=== PATIENT | male | born 1965 | race African-American/Black ===

== ENCOUNTER 2022-08-25 12:53 | Inpatient (IN) | payer BC, MEDICARE ==
[2022-08-25] VITALS (9 sets, daily range): BP systolic 84–134; BP diastolic 44–79
[~2022-08-25] VITALS: Ht 165.1 cm; Wt 63.8 kg
[2022-08-25] MEDS ORDERED: SODIUM CHLORIDE 0.9% 1,000 ML IV ONE ×3 (13:15→15:45)
[2022-08-25 14:02] LABS: HEMATOCRIT. 33.8 % (42.0-52.0); HEMOGLOBIN. 10.8 g/dL (14.0-18.0); MEAN CORPUSCULAR VOLUME 87.2 fL (80.0-94.0); PLATELET 265 x1000/uL (130-400); RED BLOOD CELL COUNT 3.87 mill/uL (4.7-6.1); RED CELL DISTRIBUTION WIDTH 15.1 % (11.6-14.6)
[2022-08-25 14:15] LABS: CHLORIDE 85 mEq/L (98-107)
[2022-08-25 14:24] LABS: BETA HYDROXYBUTYRATE 0.2 mMol/L (0.0-0.3)
[2022-08-25] MEDS ORDERED: INSULIN REGULAR (HUMULIN R) 300UNITS/3ML VIAL IV ONE (15:45)
[2022-08-25] MEDS ORDERED: INSULIN REGULAR (DRIP) 100 UNITS in SODIUM CHLORIDE 0.9% 99 ML IV ONE ×2 (15:45→16:00)
[2022-08-25 16:15] LABS: PLATELET ESTIMATE NORMAL
[2022-08-25 17:34] LABS: CLARITY URINE CLEAR (CLEAR); COLOR URINE YELLOW (YELLOW); KETONES URINE NEGATIVE (NEGATIVE); LEUKOCYTE ESTERASE URINE NEGATIVE (NEGATIVE); NITRITE URINE NEGATIVE (NEGATIVE); OCCULT BLOOD URINE 2+ (NEGATIVE); PROTEIN URINE TRACE (NEGATIVE); SPECIFIC GRAVITY URINE 1.024 (1.005-1.030); UROBILINOGEN URINE 0.2 E.U./dL (0.2-1.0)
[2022-08-25] MEDS ORDERED: ONDANSETRON HCL 4MG/2ML INJ IV PRN (20:45)
[2022-08-25] MEDS ORDERED: PIPERACILLIN/TAZ 3.375G PREMIX 50 ML IV SCH (20:45)
[2022-08-25] MEDS ORDERED: ENOXAPARIN 40MG/0.4ML SYR SUBCUT SCH (21:00)
[2022-08-25] MEDS ORDERED: LEVETIRACETAM 500MG/5ML CUP PO SCH (21:00)
[2022-08-25] MEDS ORDERED: DEXTROSE 50% WATER 50ML SYRINGE IV PRN (21:15)
[2022-08-25] MEDS: PIPERACILLIN/TAZOBACTAM 3.375 G in DEXTROSE 5% WATER 50 ML IV SCH (21:21)
[2022-08-25] MEDS: SODIUM CHLORIDE 0.9% 1,000 ML IV SCH (21:21)
[2022-08-25] MEDS: FAMOTIDINE 20MG/2ML VIAL IV SCH (21:22)
[2022-08-25] MEDS: LEVETIRACETAM 500MG PREMIX 100 ML IV SCH (21:31)
[2022-08-25] MEDS ORDERED: NALOXONE HCL 0.4MG/ML VIAL IV PRN (22:00)
[2022-08-25] MEDS: INSULIN LISPRO 100 UNITS/ML SUBCUT SCH (22:00)
[2022-08-25] MEDS ORDERED: MORPHINE SULFATE 2 MG/ML CPJ (NOT FOR IM USE) IV PRN (22:00)
[2022-08-25] MEDS: BLOOD SUGAR DIAGNOSTIC STRIP TEST SCH (22:35)
[2022-08-25] MEDS ORDERED: SODIUM POLYSTYRENE SULFONATE 15 G/60 ML BOT PO NR (22:45)
[2022-08-26] VITALS (34 sets, daily range): BP systolic 85–165; BP diastolic 42–102
[2022-08-26] MEDS: BLOOD SUGAR DIAGNOSTIC STRIP TEST SCH ×9 (00:28→20:54)
[2022-08-26] MEDS: INSULIN LISPRO 100 UNITS/ML SUBCUT SCH ×7 (01:46→17:17)
[2022-08-26] MEDS: SODIUM CHLORIDE 0.9% 1,000 ML IV SCH ×3 (04:47→19:52)
[2022-08-26] MEDS: IPRATROPIUM/ALBUTEROL 0.5-3(2.5)MG/3ML NEB HHN SCH ×5 (04:50→20:13)
[2022-08-26 06:12] LABS: HEMATOCRIT. 29.7 % (42.0-52.0); HEMOGLOBIN. 9.9 g/dL (14.0-18.0); MEAN CORPUSCULAR HEMOGLOBIN 28.1 pg (28.0-32.0); MEAN PLATELET VOLUME 9.4 fl (7.4-10.4); PLATELET 275 x1000/uL (130-400); RED BLOOD CELL COUNT 3.53 mill/uL (4.7-6.1); RED CELL DISTRIBUTION WIDTH 14.8 % (11.6-14.6)
[2022-08-26 06:51] LABS: CHLORIDE 105 mEq/L (98-107)
[2022-08-26 07:15] LABS: HDL CHOLESTEROL 9 mg/dL (40-59); LDL CHOLESTEROL 20 mg/dL (5-100); PHOSPHORUS 2.5 mg/dL (2.5-4.9)
[2022-08-26 08:21] LABS: BG BASE EXCESS -8.3 mmol/L (-2.0-2.0); BG CARBOXYHEMOGLOBIN 0.2 % (0.5-1.5); BG DEOXYHEMOGLOBIN 5.8 % (0.0-5.0); BG HCO3 ACT 16.4 mmol/L (22.0-26.0); BG METHEMOGLOBIN 0.3 % (0.0-1.5); BG OXYGEN SATURATION 94.2 % (92.0-98.5); BG OXYHEMOGLOBIN 93.7 % (94.0-97.0); BG PCO2 31.4 mmHg (35.0-45.0); BG PH 7.337 (7.350-7.450); BG PO2 70.6 mmHg (75.0-100.0); BG SAMPLE SITE RIGHT BRACHIAL; BG VENT MODE ROOM AIR
[2022-08-26] MEDS: LEVETIRACETAM 500MG PREMIX 100 ML IV SCH ×2 (09:43→20:24)
[2022-08-26] MEDS: PIPERACILLIN/TAZOBACTAM 3.375 G in DEXTROSE 5% WATER 50 ML IV SCH ×2 (09:43→20:25)
[2022-08-26 09:46] LABS: PLATELET ESTIMATE NORMAL
[2022-08-26] MEDS: INSULIN GLARGINE 100 UNITS/ML SUBCUT SCH ×2 (12:51→21:06)
[2022-08-26] MEDS ORDERED: INSULIN LISPRO 100 UNITS/ML SUBCUT SCH (16:30)
[2022-08-26] MEDS: INSULIN LISPRO (LOW DOSE) 100 UNITS/ML SUBCUT SCH (17:13)
[2022-08-26] MEDS: ACETAMINOPHEN 325MG TABLET PO PRN (19:42)
[2022-08-26] MEDS ORDERED: SODIUM CHLORIDE 0.9% 1,000 ML IV ONE (19:45)
[2022-08-26] MEDS: FAMOTIDINE 20MG/2ML VIAL IV SCH (20:24)
[2022-08-26] MEDS ORDERED: THIAMINE HCL 100 MG in SODIUM CHLORIDE 0.9% 49 ML IV NR (20:30)
[2022-08-26] MEDS ORDERED: ENOXAPARIN 30MG/0.3ML SYR SUBCUT SCH (21:00)
[2022-08-27] VITALS (22 sets, daily range): BP systolic 118–179; BP diastolic 61–93
[2022-08-27] MEDS: IPRATROPIUM/ALBUTEROL 0.5-3(2.5)MG/3ML NEB HHN SCH ×6 (00:06→20:16)
[2022-08-27] MEDS: SODIUM CHLORIDE 0.9% 1,000 ML IV SCH ×3 (00:21→08:18)
[2022-08-27] MEDS: INSULIN LISPRO (LOW DOSE) 100 UNITS/ML SUBCUT SCH ×4 (05:23→16:48)
[2022-08-27] MEDS: BLOOD SUGAR DIAGNOSTIC STRIP TEST SCH ×4 (05:24→21:00)
[2022-08-27] MEDS: INSULIN LISPRO 100 UNITS/ML SUBCUT SCH ×3 (05:24→16:47)
[2022-08-27 06:13] LABS: CHLORIDE 114 mEq/L (98-107)
[2022-08-27 06:21] LABS: CREATINE KINASE 98 IU/L (39-308)
[2022-08-27] MEDS: LEVETIRACETAM 500MG PREMIX 100 ML IV SCH ×2 (08:52→23:52)
[2022-08-27] MEDS: PIPERACILLIN/TAZOBACTAM 3.375 G in DEXTROSE 5% WATER 50 ML IV SCH (08:52)
[2022-08-27 12:10] LABS: HEMATOCRIT. 29.5 % (42.0-52.0); HEMOGLOBIN. 9.7 g/dL (14.0-18.0); MEAN CORPUSCULAR HEMOGLOBIN 27.8 pg (28.0-32.0); MEAN CORPUSCULAR VOLUME 84.6 fL (80.0-94.0); MEAN PLATELET VOLUME 8.8 fl (7.4-10.4); PLATELET 307 x1000/uL (130-400); RED BLOOD CELL COUNT 3.49 mill/uL (4.7-6.1); RED CELL DISTRIBUTION WIDTH 15.5 % (11.6-14.6)
[2022-08-27] MEDS: METOPROLOL TARTRATE 25MG TABLET PO SCH ×2 (12:20→23:53)
[2022-08-27 16:10] LABS: PLATELET ESTIMATE NORMAL
[2022-08-27] MEDS ORDERED: THIAMINE HCL 100 MG in SODIUM CHLORIDE 0.9% 49 ML IV NR (16:30)
[2022-08-27] MEDS: FAMOTIDINE 20MG/2ML VIAL IV SCH (23:52)
[2022-08-27] MEDS: ENOXAPARIN 40MG/0.4ML SYR SUBCUT SCH (23:53)
[2022-08-27] MEDS: INSULIN GLARGINE 100 UNITS/ML SUBCUT SCH (23:55)
[2022-08-28] VITALS (7 sets, daily range): BP systolic 153–166; BP diastolic 74–97
[2022-08-28] MEDS: IPRATROPIUM/ALBUTEROL 0.5-3(2.5)MG/3ML NEB HHN SCH ×6 (00:16→21:28)
[2022-08-28 06:21] LABS: HEMATOCRIT. 29.5 % (42.0-52.0); HEMOGLOBIN. 9.9 g/dL (14.0-18.0); MEAN CORPUSCULAR HEMOGLOBIN 27.8 pg (28.0-32.0); MEAN CORPUSCULAR VOLUME 83.3 fL (80.0-94.0); MEAN PLATELET VOLUME 8.7 fl (7.4-10.4); PLATELET 321 x1000/uL (130-400); RED BLOOD CELL COUNT 3.55 mill/uL (4.7-6.1); RED CELL DISTRIBUTION WIDTH 15.2 % (11.6-14.6)
[2022-08-28 07:10] LABS: CHLORIDE 110 mEq/L (98-107)
[2022-08-28] MEDS: BLOOD SUGAR DIAGNOSTIC STRIP TEST SCH ×4 (07:30→21:03)
[2022-08-28] MEDS: INSULIN LISPRO (LOW DOSE) 100 UNITS/ML SUBCUT SCH ×3 (07:30→18:11)
[2022-08-28] MEDS: INSULIN LISPRO 100 UNITS/ML SUBCUT SCH ×3 (07:30→17:10)
[2022-08-28 07:31] LABS: PHOSPHORUS 1.5 mg/dL (2.5-4.9)
[2022-08-28] MEDS: METOPROLOL TARTRATE 25MG TABLET PO SCH ×2 (09:18→21:03)
[2022-08-28] MEDS: LEVETIRACETAM 500MG PREMIX 100 ML IV SCH (09:18)
[2022-08-28] MEDS: PIPERACILLIN/TAZOBACTAM 3.375 G in DEXTROSE 5% WATER 50 ML IV SCH ×4 (09:18→21:06)
[2022-08-28] MEDS ORDERED: MAGNESIUM 2 G PREMIX 50 ML IV SCH (12:00)
[2022-08-28] MEDS: POTASSIUM-SODIUM PHOSPHATE POWDER PACKET PO SCH ×2 (12:16→18:06)
[2022-08-28] MEDS ORDERED: POTASSIUM PHOS,M-BASIC-D-BASIC 30 MMOL in SODIUM CHLORIDE 0.9% 500 ML IV SCH (13:00)
[2022-08-28] MEDS: ENOXAPARIN 40MG/0.4ML SYR SUBCUT SCH (21:03)
[2022-08-28] MEDS: FAMOTIDINE 20MG TABLET PO SCH (21:03)
[2022-08-28] MEDS: LEVETIRACETAM 500MG/5ML CUP PO SCH (21:04)
[2022-08-28] MEDS: INSULIN GLARGINE 100 UNITS/ML SUBCUT SCH (21:26)
[2022-08-29 00:20] VITALS: BP 161/88
[2022-08-29] MEDS: IPRATROPIUM/ALBUTEROL 0.5-3(2.5)MG/3ML NEB HHN SCH ×6 (00:29→20:42)
[2022-08-29 04:15] VITALS: BP 154/92
[2022-08-29 05:48] LABS: BASOPHILS % 0.1 % (0.0-2.0); EOSINOPHILS % 0.1 % (0.0-5.0); HEMOGLOBIN. 9.5 g/dL (14.0-18.0); LYMPHOCYTES % 9.1 % (20.0-50.0); MEAN CORPUSCULAR VOLUME 82.3 fL (80.0-94.0); MEAN PLATELET VOLUME 8.7 fl (7.4-10.4); MONOCYTES % 4.6 % (2.0-8.0); NEUTROPHILS % 86.1 % (40.0-76.0); PLATELET 375 x1000/uL (130-400); RED BLOOD CELL COUNT 3.41 mill/uL (4.7-6.1); RED CELL DISTRIBUTION WIDTH 15.3 % (11.6-14.6)
[2022-08-29] MEDS: INSULIN LISPRO 100 UNITS/ML SUBCUT SCH ×4 (07:10→16:47)
[2022-08-29] MEDS: INSULIN LISPRO (LOW DOSE) 100 UNITS/ML SUBCUT SCH ×3 (07:10→16:46)
[2022-08-29] MEDS: BLOOD SUGAR DIAGNOSTIC STRIP TEST SCH ×4 (07:10→21:22)
[2022-08-29 08:00] VITALS: BP 159/85
[2022-08-29] MEDS: METOPROLOL TARTRATE 25MG TABLET PO SCH ×2 (08:45→21:21)
[2022-08-29] MEDS: LEVETIRACETAM 500MG/5ML CUP PO SCH ×2 (08:45→21:21)
[2022-08-29] MEDS: POTASSIUM-SODIUM PHOSPHATE POWDER PACKET PO SCH ×2 (08:45→16:51)
[2022-08-29] MEDS: PIPERACILLIN/TAZOBACTAM 3.375 G in DEXTROSE 5% WATER 50 ML IV SCH ×2 (08:50→21:21)
[2022-08-29 09:25] LABS: CHLORIDE 107 mEq/L (98-107)
[2022-08-29 09:39] LABS: PHOSPHORUS 2.1 mg/dL (2.5-4.9)
[2022-08-29] MEDS ORDERED: DEXT 5%/0.9% NACL 1,000 ML IV SCH (10:45)
[2022-08-29 11:34] LABS: PLATELET ESTIMATE NORMAL
[2022-08-29 12:00] VITALS: BP 145/84
[2022-08-29] MEDS: ACETAMINOPHEN 325MG TABLET PO PRN (15:02)
[2022-08-29 15:32] VITALS: BP 154/85
[2022-08-29 20:00] VITALS: BP 131/76
[2022-08-29] MEDS: ENOXAPARIN 40MG/0.4ML SYR SUBCUT SCH (21:22)
[2022-08-29] MEDS: FAMOTIDINE 20MG TABLET PO SCH (21:22)
[2022-08-29] MEDS: INSULIN GLARGINE 100 UNITS/ML SUBCUT SCH (21:23)
[2022-08-30] VITALS: BP 126/80
[2022-08-30] MEDS: IPRATROPIUM/ALBUTEROL 0.5-3(2.5)MG/3ML NEB HHN SCH ×6 (00:39→20:19)
[2022-08-30 04:00] VITALS: BP 149/82
[2022-08-30] MEDS: BLOOD SUGAR DIAGNOSTIC STRIP TEST SCH ×4 (06:44→21:00)
[2022-08-30] MEDS: INSULIN LISPRO (LOW DOSE) 100 UNITS/ML SUBCUT SCH ×3 (06:45→18:40)
[2022-08-30] MEDS: INSULIN LISPRO 100 UNITS/ML SUBCUT SCH ×3 (06:49→18:41)
[2022-08-30 08:30] VITALS: BP 151/83
[2022-08-30] MEDS: LEVETIRACETAM 500MG/5ML CUP PO SCH ×2 (08:34→21:41)
[2022-08-30] MEDS: METOPROLOL TARTRATE 25MG TABLET PO SCH (08:34)
[2022-08-30] MEDS: POTASSIUM-SODIUM PHOSPHATE POWDER PACKET PO SCH ×2 (08:34→16:22)
[2022-08-30] MEDS: PIPERACILLIN/TAZOBACTAM 3.375 G in DEXTROSE 5% WATER 50 ML IV SCH ×2 (08:35→21:40)
[2022-08-30] MEDS ORDERED: INFLUENZA VACCINE 05/PF 0.5 ML SYRINGE IM ONE (10:00)
[2022-08-30 12:10] VITALS: BP 128/69
[2022-08-30 16:12] VITALS: BP 138/70
[2022-08-30] MEDS: ACETAMINOPHEN 325MG TABLET PO PRN (16:22)
[2022-08-30 16:54] LABS: HEMATOCRIT 28.7 % (42.0-52.0); HEMOGLOBIN 9.7 g/dL (14.0-18.0)
[2022-08-30 16:55] LABS: INR 1.1; PROTHROMBIN TIME 11.4 sec (9.6-11.0)
[2022-08-30 18:09] LABS: FERRITIN 299 ng/mL (22-322)
[2022-08-30 18:21] LABS: TOTAL IRON BINDING CAPACITY 124 ug/dL (250-450)
[2022-08-30 20:00] VITALS: BP 121/65
[2022-08-30] MEDS ORDERED: METOPROLOL TARTRATE 25MG TABLET PO SCH (21:00)
[2022-08-30] MEDS: FAMOTIDINE 20MG TABLET PO SCH (21:41)
[2022-08-30] MEDS: ENOXAPARIN 40MG/0.4ML SYR SUBCUT SCH (21:44)
[2022-08-30 21:49] LABS: HEPATITIS B SURFACE ANTIGEN NEGATIVE
[2022-08-30] MEDS: INSULIN GLARGINE 100 UNITS/ML SUBCUT SCH (22:13)
[2022-08-31] VITALS: BP 126/70
[2022-08-31] MEDS: IPRATROPIUM/ALBUTEROL 0.5-3(2.5)MG/3ML NEB HHN SCH ×5 (00:01→17:10)
[2022-08-31 04:00] VITALS: BP 140/76
[2022-08-31 06:52] LABS: BASOPHILS % 0.2 % (0.0-2.0); EOSINOPHILS % 0.5 % (0.0-5.0); HEMATOCRIT. 29.6 % (42.0-52.0); HEMOGLOBIN. 9.8 g/dL (14.0-18.0); LYMPHOCYTES % 11.9 % (20.0-50.0); MEAN CORPUSCULAR VOLUME 84.7 fL (80.0-94.0); MEAN PLATELET VOLUME 8.9 fl (7.4-10.4); MONOCYTES % 5.2 % (2.0-8.0); NEUTROPHILS % 82.2 % (40.0-76.0); PLATELET 437 x1000/uL (130-400); RED CELL DISTRIBUTION WIDTH 15.2 % (11.6-14.6)
[2022-08-31] MEDS: INSULIN LISPRO (LOW DOSE) 100 UNITS/ML SUBCUT SCH ×4 (07:06→18:28)
[2022-08-31] MEDS: INSULIN LISPRO 100 UNITS/ML SUBCUT SCH ×2 (07:06→18:25)
[2022-08-31] MEDS: BLOOD SUGAR DIAGNOSTIC STRIP TEST SCH ×4 (07:07→20:38)
[2022-08-31 08:02] VITALS: BP 127/76
[2022-08-31] MEDS: LEVETIRACETAM 500MG/5ML CUP PO SCH ×2 (10:06→21:13)
[2022-08-31] MEDS: METOPROLOL TARTRATE 50MG TABLET PO SCH ×2 (10:07→21:14)
[2022-08-31] MEDS: POTASSIUM-SODIUM PHOSPHATE POWDER PACKET PO SCH ×2 (10:07→18:17)
[2022-08-31 12:00] VITALS: BP 123/74
[2022-08-31 16:00] VITALS: BP 131/79
[2022-08-31] MEDS: ACETAMINOPHEN 325MG TABLET PO PRN (18:17)
[2022-08-31 19:30] LABS: VITAMIN B12 SERUM 883 pg/mL (211-911)
[2022-08-31 20:00] VITALS: BP 115/67
[2022-08-31] MEDS: INSULIN GLARGINE 100 UNITS/ML SUBCUT SCH (21:13)
[2022-08-31] MEDS: ENOXAPARIN 40MG/0.4ML SYR SUBCUT SCH (21:14)
[2022-08-31] MEDS: FAMOTIDINE 20MG TABLET PO SCH (21:14)
[2022-09-01] VITALS: BP 118/70
[2022-09-01] MEDS: IPRATROPIUM/ALBUTEROL 0.5-3(2.5)MG/3ML NEB HHN SCH ×6 (00:23→21:07)
[2022-09-01 01:48] LABS: CREATINE KINASE 74 IU/L (39-308)
[2022-09-01 04:00] VITALS: BP 130/75
[2022-09-01] MEDS: INSULIN LISPRO (LOW DOSE) 100 UNITS/ML SUBCUT SCH ×3 (06:57→16:23)
[2022-09-01] MEDS: BLOOD SUGAR DIAGNOSTIC STRIP TEST SCH ×4 (06:57→20:53)
[2022-09-01 07:05] LABS: BASOPHILS % 0.5 % (0.0-2.0); EOSINOPHILS % 0.6 % (0.0-5.0); HEMATOCRIT. 29.1 % (42.0-52.0); HEMOGLOBIN. 9.7 g/dL (14.0-18.0); LYMPHOCYTES % 9.5 % (20.0-50.0); MEAN CORPUSCULAR HEMOGLOBIN 27.8 pg (28.0-32.0); MEAN CORPUSCULAR VOLUME 83.4 fL (80.0-94.0); MEAN PLATELET VOLUME 8.8 fl (7.4-10.4); MONOCYTES % 5.8 % (2.0-8.0); NEUTROPHILS % 83.6 % (40.0-76.0); PLATELET 496 x1000/uL (130-400); RED BLOOD CELL COUNT 3.49 mill/uL (4.7-6.1); RED CELL DISTRIBUTION WIDTH 15.1 % (11.6-14.6)
[2022-09-01 08:00] VITALS: BP 125/70
[2022-09-01] MEDS: POTASSIUM-SODIUM PHOSPHATE POWDER PACKET PO SCH ×2 (10:00→16:34)
[2022-09-01] MEDS: INSULIN LISPRO 100 UNITS/ML SUBCUT SCH ×3 (10:01→16:35)
[2022-09-01] MEDS: METOPROLOL TARTRATE 50MG TABLET PO SCH ×2 (10:01→21:09)
[2022-09-01] MEDS: LEVETIRACETAM 500MG/5ML CUP PO SCH ×2 (10:03→21:08)
[2022-09-01 12:00] VITALS: BP 107/67
[2022-09-01] MEDS: PIPERACILLIN/TAZOBACTAM 3.375 G in DEXTROSE 5% WATER 50 ML IV SCH ×2 (15:46→21:09)
[2022-09-01 16:00] VITALS: BP 123/65
[2022-09-01 20:00] VITALS: BP 117/65
[2022-09-01 20:01] LABS: CHLORIDE 102 mEq/L (98-107)
[2022-09-01 20:13] LABS: PHOSPHORUS 2.7 mg/dL (2.5-4.9)
[2022-09-01 20:35] LABS: CHLORIDE 105 mEq/L (98-107)
[2022-09-01] MEDS: ENOXAPARIN 40MG/0.4ML SYR SUBCUT SCH (21:08)
[2022-09-01] MEDS: FAMOTIDINE 20MG TABLET PO SCH (21:09)
[2022-09-01] MEDS: INSULIN GLARGINE 100 UNITS/ML SUBCUT SCH (21:10)
[2022-09-02] VITALS: BP 122/80
[2022-09-02] MEDS: IPRATROPIUM/ALBUTEROL 0.5-3(2.5)MG/3ML NEB HHN SCH ×5 (01:08→16:00)
[2022-09-02 04:00] VITALS: BP 121/68
[2022-09-02] MEDS: PIPERACILLIN/TAZOBACTAM 3.375 G in DEXTROSE 5% WATER 50 ML IV SCH ×3 (05:50→22:53)
[2022-09-02] MEDS: INSULIN LISPRO (LOW DOSE) 100 UNITS/ML SUBCUT SCH ×3 (05:51→17:07)
[2022-09-02] MEDS: BLOOD SUGAR DIAGNOSTIC STRIP TEST SCH ×4 (05:52→21:00)
[2022-09-02] MEDS: INSULIN LISPRO 100 UNITS/ML SUBCUT SCH ×3 (05:52→17:09)
[2022-09-02 07:37] LABS: BASOPHILS % 0.7 % (0.0-2.0); EOSINOPHILS % 0.8 % (0.0-5.0); HEMATOCRIT. 28.4 % (42.0-52.0); HEMOGLOBIN. 9.5 g/dL (14.0-18.0); LYMPHOCYTES % 12.2 % (20.0-50.0); MEAN CORPUSCULAR VOLUME 83.6 fL (80.0-94.0); MEAN PLATELET VOLUME 8.9 fl (7.4-10.4); MONOCYTES % 6.9 % (2.0-8.0); NEUTROPHILS % 79.4 % (40.0-76.0); PLATELET 550 x1000/uL (130-400); RED BLOOD CELL COUNT 3.39 mill/uL (4.7-6.1); RED CELL DISTRIBUTION WIDTH 15.2 % (11.6-14.6)
[2022-09-02] MEDS: POTASSIUM-SODIUM PHOSPHATE POWDER PACKET PO SCH ×2 (08:46→17:00)
[2022-09-02] MEDS: LEVETIRACETAM 500MG/5ML CUP PO SCH ×2 (08:46→21:08)
[2022-09-02] MEDS: METOPROLOL TARTRATE 50MG TABLET PO SCH ×2 (08:47→21:08)
[2022-09-02 10:44] LABS: CHLORIDE 100 mEq/L (98-107)
[2022-09-02 11:00] LABS: PHOSPHORUS 2.9 mg/dL (2.5-4.9)
[2022-09-02 12:00] VITALS: BP 118/69
[2022-09-02 16:00] VITALS: BP 112/64
[2022-09-02 20:00] VITALS: BP 119/71
[2022-09-02] MEDS: FAMOTIDINE 20MG TABLET PO SCH (21:08)
[2022-09-02] MEDS: ENOXAPARIN 40MG/0.4ML SYR SUBCUT SCH (21:09)
[2022-09-02] MEDS: INSULIN GLARGINE 100 UNITS/ML SUBCUT SCH (22:55)
[2022-09-03] VITALS: BP 118/60
[2022-09-03] MEDS: IPRATROPIUM/ALBUTEROL 0.5-3(2.5)MG/3ML NEB HHN SCH ×7 (00:22→20:08)
[2022-09-03 04:00] VITALS: BP 115/70
[2022-09-03] MEDS: PIPERACILLIN/TAZOBACTAM 3.375 G in DEXTROSE 5% WATER 50 ML IV SCH ×3 (05:10→22:13)
[2022-09-03] MEDS: BLOOD SUGAR DIAGNOSTIC STRIP TEST SCH ×4 (06:19→21:00)
[2022-09-03] MEDS: INSULIN LISPRO (LOW DOSE) 100 UNITS/ML SUBCUT SCH ×3 (06:19→19:04)
[2022-09-03] MEDS: INSULIN LISPRO 100 UNITS/ML SUBCUT SCH ×3 (06:19→19:03)
[2022-09-03 06:34] LABS: BASOPHILS % 0.6 % (0.0-2.0); EOSINOPHILS % 0.8 % (0.0-5.0); HEMATOCRIT. 27.5 % (42.0-52.0); HEMOGLOBIN. 9.2 g/dL (14.0-18.0); MEAN CORPUSCULAR HEMOGLOBIN 27.8 pg (28.0-32.0); MEAN CORPUSCULAR VOLUME 83.2 fL (80.0-94.0); MEAN PLATELET VOLUME 8.5 fl (7.4-10.4); MONOCYTES % 8.7 % (2.0-8.0); NEUTROPHILS % 75.9 % (40.0-76.0); PLATELET 576 x1000/uL (130-400); RED BLOOD CELL COUNT 3.31 mill/uL (4.7-6.1)
[2022-09-03 06:47] LABS: CHLORIDE 100 mEq/L (98-107)
[2022-09-03 08:00] VITALS: BP 118/78
[2022-09-03] MEDS: POTASSIUM-SODIUM PHOSPHATE POWDER PACKET PO SCH ×2 (09:42→18:59)
[2022-09-03] MEDS: LEVETIRACETAM 500MG/5ML CUP PO SCH ×2 (09:43→22:11)
[2022-09-03] MEDS: METOPROLOL TARTRATE 50MG TABLET PO SCH ×2 (09:43→22:12)
[2022-09-03 12:00] VITALS: BP 106/62
[2022-09-03 16:00] VITALS: BP 122/67
[2022-09-03 20:00] VITALS: BP 119/64
[2022-09-03] MEDS: FAMOTIDINE 20MG TABLET PO SCH (22:11)
[2022-09-03] MEDS: ENOXAPARIN 40MG/0.4ML SYR SUBCUT SCH (22:11)
[2022-09-03] MEDS: INSULIN GLARGINE 100 UNITS/ML SUBCUT SCH (22:17)
[2022-09-04] VITALS (7 sets, daily range): BP systolic 104–139; BP diastolic 44–68
[2022-09-04] MEDS: IPRATROPIUM/ALBUTEROL 0.5-3(2.5)MG/3ML NEB HHN SCH ×6 (00:21→20:20)
[2022-09-04] MEDS: PIPERACILLIN/TAZOBACTAM 3.375 G in DEXTROSE 5% WATER 50 ML IV SCH ×3 (05:50→21:16)
[2022-09-04] MEDS: INSULIN LISPRO (LOW DOSE) 100 UNITS/ML SUBCUT SCH ×3 (06:26→17:10)
[2022-09-04] MEDS: INSULIN LISPRO 100 UNITS/ML SUBCUT SCH ×3 (06:27→17:10)
[2022-09-04] MEDS: BLOOD SUGAR DIAGNOSTIC STRIP TEST SCH ×4 (06:27→20:27)
[2022-09-04 08:27] LABS: BASOPHILS % 0.7 % (0.0-2.0); EOSINOPHILS % 0.8 % (0.0-5.0); HEMOGLOBIN. 9.3 g/dL (14.0-18.0); LYMPHOCYTES % 16.6 % (20.0-50.0); MEAN CORPUSCULAR HEMOGLOBIN 27.7 pg (28.0-32.0); MEAN CORPUSCULAR VOLUME 83.5 fL (80.0-94.0); MEAN PLATELET VOLUME 8.6 fl (7.4-10.4); MONOCYTES % 8.3 % (2.0-8.0); NEUTROPHILS % 73.6 % (40.0-76.0); PLATELET 665 x1000/uL (130-400); RED BLOOD CELL COUNT 3.35 mill/uL (4.7-6.1); RED CELL DISTRIBUTION WIDTH 14.9 % (11.6-14.6)
[2022-09-04 09:35] LABS: CHLORIDE 100 mEq/L (98-107)
[2022-09-04 09:50] LABS: PHOSPHORUS 3.1 mg/dL (2.5-4.9)
[2022-09-04] MEDS: LEVETIRACETAM 500MG/5ML CUP PO SCH ×2 (10:55→21:14)
[2022-09-04] MEDS: METOPROLOL TARTRATE 50MG TABLET PO SCH ×2 (10:55→21:14)
[2022-09-04] MEDS: POTASSIUM-SODIUM PHOSPHATE POWDER PACKET PO SCH ×2 (10:55→19:01)
[2022-09-04] MEDS: ENOXAPARIN 40MG/0.4ML SYR SUBCUT SCH (21:15)
[2022-09-04] MEDS: FAMOTIDINE 20MG TABLET PO SCH (21:15)
[2022-09-04] MEDS: INSULIN GLARGINE 100 UNITS/ML SUBCUT SCH (21:28)
[2022-09-05] VITALS: BP 108/60
[2022-09-05] MEDS: IPRATROPIUM/ALBUTEROL 0.5-3(2.5)MG/3ML NEB HHN SCH ×7 (00:40→23:53)
[2022-09-05 04:00] VITALS: BP 113/74
[2022-09-05] MEDS: PIPERACILLIN/TAZOBACTAM 3.375 G in DEXTROSE 5% WATER 50 ML IV SCH ×3 (05:37→21:56)
[2022-09-05] MEDS: BLOOD SUGAR DIAGNOSTIC STRIP TEST SCH ×4 (06:14→20:54)
[2022-09-05] MEDS: INSULIN LISPRO (LOW DOSE) 100 UNITS/ML SUBCUT SCH ×3 (06:14→18:02)
[2022-09-05] MEDS: INSULIN LISPRO 100 UNITS/ML SUBCUT SCH ×3 (06:14→18:02)
[2022-09-05 06:58] LABS: BASOPHILS % 0.9 % (0.0-2.0); EOSINOPHILS % 0.7 % (0.0-5.0); HEMATOCRIT. 29.5 % (42.0-52.0); HEMOGLOBIN. 10.1 g/dL (14.0-18.0); LYMPHOCYTES % 12.6 % (20.0-50.0); MEAN CORPUSCULAR HEMOGLOBIN 28.9 pg (28.0-32.0); MEAN CORPUSCULAR VOLUME 84.6 fL (80.0-94.0); MEAN PLATELET VOLUME 8.7 fl (7.4-10.4); MONOCYTES % 7.3 % (2.0-8.0); NEUTROPHILS % 78.5 % (40.0-76.0); PLATELET 710 x1000/uL (130-400); RED BLOOD CELL COUNT 3.48 mill/uL (4.7-6.1); RED CELL DISTRIBUTION WIDTH 14.8 % (11.6-14.6)
[2022-09-05 08:00] VITALS: BP 120/73
[2022-09-05 08:56] LABS: CHLORIDE 101 mEq/L (98-107)
[2022-09-05] MEDS: POTASSIUM-SODIUM PHOSPHATE POWDER PACKET PO SCH ×2 (09:02→17:49)
[2022-09-05] MEDS: LEVETIRACETAM 500MG/5ML CUP PO SCH ×2 (09:02→20:54)
[2022-09-05] MEDS: METOPROLOL TARTRATE 50MG TABLET PO SCH ×2 (09:03→20:54)
[2022-09-05 16:00] VITALS: BP 139/83
[2022-09-05 20:00] VITALS: BP 138/88
[2022-09-05] MEDS: FAMOTIDINE 20MG TABLET PO SCH (20:54)
[2022-09-05] MEDS: ENOXAPARIN 40MG/0.4ML SYR SUBCUT SCH (20:54)
[2022-09-05] MEDS ORDERED: INSULIN GLARGINE 100 UNITS/ML SUBCUT SCH (22:00)
[2022-09-06] VITALS (7 sets, daily range): BP systolic 104–165; BP diastolic 60–92
[2022-09-06] MEDS: IPRATROPIUM/ALBUTEROL 0.5-3(2.5)MG/3ML NEB HHN SCH ×6 (04:04→23:57)
[2022-09-06] MEDS: PIPERACILLIN/TAZOBACTAM 3.375 G in DEXTROSE 5% WATER 50 ML IV SCH ×2 (05:40→16:14)
[2022-09-06] MEDS: INSULIN LISPRO 100 UNITS/ML SUBCUT SCH ×3 (06:20→17:10)
[2022-09-06] MEDS: INSULIN LISPRO (LOW DOSE) 100 UNITS/ML SUBCUT SCH ×3 (06:20→17:40)
[2022-09-06] MEDS: BLOOD SUGAR DIAGNOSTIC STRIP TEST SCH ×4 (06:21→20:50)
[2022-09-06 07:34] LABS: HEMATOCRIT. 29.7 % (42.0-52.0); HEMOGLOBIN. 9.7 g/dL (14.0-18.0); MEAN CORPUSCULAR HEMOGLOBIN 27.8 pg (28.0-32.0); MEAN CORPUSCULAR VOLUME 84.6 fL (80.0-94.0); MEAN PLATELET VOLUME 8.4 fl (7.4-10.4); PLATELET 735 x1000/uL (130-400); RED BLOOD CELL COUNT 3.51 mill/uL (4.7-6.1); RED CELL DISTRIBUTION WIDTH 15.1 % (11.6-14.6)
[2022-09-06] MEDS ORDERED: METO-539 PO (08:44)
[2022-09-06] MEDS ORDERED: KEPPSOL PO (08:44)
[2022-09-06] MEDS ORDERED: INSLIS SUBCUT (08:44)
[2022-09-06] MEDS ORDERED: LANTUSUD SUBCUT (08:44)
[2022-09-06] MEDS: POTASSIUM-SODIUM PHOSPHATE POWDER PACKET PO SCH ×2 (08:49→17:12)
[2022-09-06] MEDS: LEVETIRACETAM 500MG/5ML CUP PO SCH ×2 (08:49→20:43)
[2022-09-06] MEDS: METOPROLOL TARTRATE 50MG TABLET PO SCH ×2 (08:57→20:44)
[2022-09-06 18:48] LABS: PLATELET ESTIMATE INCREASED
[2022-09-06] MEDS: FAMOTIDINE 20MG TABLET PO SCH (20:44)
[2022-09-06] MEDS ORDERED: ENOXAPARIN 30MG/0.3ML SYR SUBCUT SCH (21:00)
[2022-09-06] MEDS ORDERED: INSULIN GLARGINE 100 UNITS/ML SUBCUT SCH (22:00)
[2022-09-07] VITALS: BP 106/64
[2022-09-07] MEDS: IPRATROPIUM/ALBUTEROL 0.5-3(2.5)MG/3ML NEB HHN SCH ×2 (03:42→12:20)
[2022-09-07 04:00] VITALS: BP 104/66
[2022-09-07] MEDS: BLOOD SUGAR DIAGNOSTIC STRIP TEST SCH (06:27)
[2022-09-07] MEDS: INSULIN LISPRO 100 UNITS/ML SUBCUT SCH (06:27)
[2022-09-07] MEDS: INSULIN LISPRO (LOW DOSE) 100 UNITS/ML SUBCUT SCH (06:27)
[2022-09-07 08:00] VITALS: BP 120/67
[2022-09-07] MEDS: POTASSIUM-SODIUM PHOSPHATE POWDER PACKET PO SCH (09:42)
[2022-09-07] MEDS: LEVETIRACETAM 500MG/5ML CUP PO SCH (09:42)
[2022-09-07] MEDS: METOPROLOL TARTRATE 50MG TABLET PO SCH (09:42)
== END 2022-09-07 16:05 | disposition home health service (06) | DRG 871 ==
LOC: ER 13:43 → ENRESERV 17:41 → MICUNO 19:23 → 5EST 08-27 18:00 → 8WST 08-28 11:00
PROVIDERS: ADMIT Internal Medicine Pulmonary Disease; ATTEND Internal Medicine Pulmonary Disease
PROC: 4A00X4Z Measurement of Central Nervous Electrical Activity, External Approach (ICD-10-PCS; principal; 2022-08-26)
DX: A41.9 Sepsis, unspecified organism (principal); E11.00 Type 2 diabetes mellitus with hyperosmolarity without nonketotic hyperglycemic-hyperosmolar coma (NKHHC); E43 Unspecified severe protein-calorie malnutrition; G93.41 Metabolic encephalopathy; E87.1 Hypo-osmolality and hyponatremia; N17.9 Acute kidney failure, unspecified; K80.10 Calculus of gallbladder with chronic cholecystitis without obstruction; Z20.822 Contact with and (suspected) exposure to COVID-19; G40.909 Epilepsy, unspecified, not intractable, without status epilepticus; E11.65 Type 2 diabetes mellitus with hyperglycemia; F79 Unspecified intellectual disabilities; E78.00 Pure hypercholesterolemia, unspecified; I10 Essential (primary) hypertension; D64.9 Anemia, unspecified; R74.01 Elevation of levels of liver transaminase levels; E78.5 Hyperlipidemia, unspecified; E87.5 Hyperkalemia; E83.42 Hypomagnesemia; Z82.49 Family history of ischemic heart disease and other diseases of the circulatory system; E83.39 Other disorders of phosphorus metabolism; R33.9 Retention of urine, unspecified; E86.0 Dehydration; R31.0 Gross hematuria; Z86.73 Personal history of transient ischemic attack (TIA), and cerebral infarction without residual deficits; Z79.1 Long term (current) use of non-steroidal anti-inflammatories (NSAID); Z68.23 Body mass index [BMI] 23.0-23.9, adult
CPT/HCPCS: 36415; 36600; 71045; 76705; 78227; 80048; 80053; 80061; 80076; 81003; 82010; 82270; 82375; 82533; 82550; 82607; 82728; 82746; 82805; 82962; 83036; 83540; 83550; 83735; 84100; 84145; 84443; 84484; 84681; 85014; 85018; 85025; 85044; 86705; 86709; 86803; 87340; 87426; 93005; 94640; 97110; 97116; 97162; 97166; 97535; 99291; A9537; J1650; J1815; J1953; J2270; J2543; J3411; J3475; J3490; J7030; J7040; J7050; J7060; A4315